=== PATIENT | male | born 1975 | race Hispanic/Latino ===

== ENCOUNTER 2017-12-02 16:17 | Emergency (ER) | payer MEDICAID ==
[2017-12-02 16:23] VITALS: PULSE 80; RESP 18; TEMP 97.7; O2SAT 100; BMI 29.7
--- NOTE | 2017-12-02 16:39 | C.PDOC ---
History Of Present Illness WORSENING R NECK PAIN X 1 MO. WORSE AT SIDE/BASE OF R NECK, WORSE W PALPATION MOVEMENT. SWELLING. +PAIN R ARM. NO WEAKNESS. [place] [facility] [place] W VALIUM NO IMPROVE. NO IMPROVE WNSAIDS EXAM MILD DIST NONTOXIC HEENT NEG NECK +MOD TEND R LAT/LOWER NECK MILD SWELL VS SPASM. LIMTIED MOVEMENT DUE TO PAIN. NO CSPNIE TEND. NO PULSATILE MASS SKIN NEG REMAINDER NEG Time Seen by Provider: 12/02/17 16:27 Chief Complaint (Nursing): Back Pain History Per: Patient History/Exam Limitations: no limitations Onset/Duration Of Symptoms: Days Current Symptoms Are (Timing): Still Present Severity: Moderate Past Medical History Reviewed: Historical Data, Nursing Documentation, Vital Signs Vital Signs: Last Vital Signs Temp 97.7 F 12/02/17 16:23 Pulse 80 12/02/17 16:23 Resp 18 12/02/17 16:23 BP 145/80 12/02/17 18:58 Pulse Ox 100 12/02/17 18:42 - Medical History PMH: HIV, HTN Surgical History: No Surg Hx Family History: States: No Known Family Hx - Social History Hx Alcohol Use: No Hx Substance Use: No - Immunization History Hx Tetanus Toxoid Vaccination: No Hx Influenza Vaccination: No Hx Pneumococcal Vaccination: No Review Of Systems Except As Marked, All Systems Reviewed And Found Negative. Musculoskeletal: Positive for: Neck Pain (right neck pain), Arm Pain (right arm pain) Neurological: Negative for: Weakness Physical Exam - Physical Exam Appears: Non-toxic, Other (mild distress) Skin: Normal Color, Warm Head: Atraumatic, Normacephalic Eye(s): bilateral: Normal Inspection Ear(s): Bilateral: Normal Nose: Normal Oral Mucosa: Moist Throat: Normal, No Erythema, No Exudate Neck: Decreased ROM (limited movement due to pain), Other (moderate tenderness right lateral/lower neck, mild swelling vs. spasm, no c-spine tenderness, no pulsatile mass) Neurological/Psych: Oriented x3, Normal Speech, Normal Motor, Normal Sensation ED Course And Treatment - Laboratory Results Result Diagrams: 12/02/17 17:09 12/02/17 17:09 O2 Sat by Pulse Oximetry: 100 (RA) Pulse Ox Interpretation: Normal Progress - Re-Evaluation Re-evaluation Note: 02/10/18 18:32 PERSIST PAIN. OFFERED ADDL PAIN RX, ADVISED OF POTENTIAL FOR INCR SIDE EFFECT. PS DOES NOT WISH ADDL MEDS @ THIS TIME. CT REPORT PENDING 12/02/17 18:41 145/70 R UE; 135/70 L ARM D/W [facility] REQUESTED STAT ED READING. STATES WILL CALLBACK 12/02/17 19:12 S/O DR DISLA F/U CT RESULTS, DISPO. PENDING REPORT [facility] - Data Reviewed Data Reviewed: Lab, Diagnostic imaging, Old records Medical Decision Making Medical Decision Making: Plan: --Labs --CT- Neck --Zofran Disposition - Disposition Disposition Time: 19:15 Condition: STABLE Forms: [employer] (Sing[place]an) - Clinical Impression Clinical Impression: Neck pain - Scribe Statement The provider has reviewed the documentation as recorded by the Sindiibarthur Conner Provider Attestation: All medical record entries made by the Scribe were at my direction and personally dictated by me. I have reviewed the chart and agree that the record accurately reflects my personal performance of the history, physical exam, medical decision making, and the department course for this patient. I have also personally directed, reviewed, and agree with the discharge instructions and disposition.
[2017-12-02 17:12] LABS: BASO % 0.6 % (0.0-2.0); EOS # 0.3 K/uL (0.0-0.7); EOS % 3.7 % (0.0-4.0); HEMOGLOBIN 14.3 g/dL (12.0-18.0); LYMPH # 1.8 K/uL (1.0-4.3); LYMPH % 26.8 % (20.0-40.0); MEAN CELL VOLUME 95.2 fL (80.0-94.0); MEAN CORPUSCULAR HEMOGLOBIN 32.7 pg (27.0-31.0); MEAN CORPUSCULAR HGB CONC 34.4 g/dL (33.0-37.0); MEAN PLATELET VOLUME 7.7 fL (7.2-11.7); MONO # 0.7 K/uL (0.0-0.8); MONO % 10.1 % (0.0-10.0); NEUT % 58.8 % (50.0-75.0); NRBC % 0.1 % (0.0-2.0); RBC 4.38 Mil/uL (4.40-5.90); WHITE BLOOD COUNT 6.8 K/uL (4.8-10.8)
[2017-12-02] MEDS ORDERED: Morphine 4 MG/ML VIAL ONE (17:12)
[2017-12-02 17:44] LABS: CALCIUM 8.4 mg/dl (8.6-10.4); GFR AFRICAN-AMERICAN > 60; GFR NON-AFRICAN AMERICAN > 60
[2017-12-02 17:46] LABS: BLOOD UREA NITROGEN 11 mg/dL (9-20)
[2017-12-02] MEDS ORDERED: HYDROmorphone 0.5 mg/0.5 ml ISec IVP STA (18:51)
[2017-12-02 18:58] VITALS: BP 145/80
[2017-12-02] MEDS ORDERED: HYDROmorphone 0.5 mg/0.5 ml ISec ONE (19:10)
--- NOTE | 2017-12-02 19:52 | CT ---
EXAM: CT Neck With Intravenous Contrast EXAM DATE/TIME: 12/02/2017 5:01 PM CLINICAL HISTORY: 42 years old, male; Signs and symptoms; Mass, lump, or swelling in neck; Additional info: R side neck pain swell TECHNIQUE: Axial computed tomography images of the neck with intravenous contrast. All CT scans at this facility use one or more dose reduction techniques, viz.: automated exposure control; ma/kV adjustment per patient size (including targeted exams where dose is matched to indication; i.e. head); or iterative reconstruction technique. Coronal and sagittal reformatted images were created and reviewed. CONTRAST: 100 mL of [id number] administered intravenously. COMPARISON: No relevant prior studies available. FINDINGS: NASOPHARYNX: No acute abnormality of the adenoidal/nasopharyngeal tonsils identified. OROPHARYNX: No acute abnormality of the tongue base identified. No acute abnormality of the palatine tonsils identified. No peritonsillar abscess. HYPOPHARYNX: No acute abnormality of the vallecula visualized. LARYNX: No acute abnormality of the vocal cords identified. No acute abnormality of the epiglottis identified. TRACHEA: Visualized portions of the trachea appear patent. RETROPHARYNGEAL SPACE: No evidence of prevertebral/retropharyngeal fluid or fluid collection. SUBMANDIBULAR/PAROTID GLANDS: No acute abnormality of the carotid or submandibular glands identified. THYROID: Left lobe of the thyroid gland is mildly heterogeneous in attenuation, however, there are no large focal nodules seen. BONES/JOINTS: No acute fractures or other acute bony abnormality noted. SOFT TISSUES:No acute abnormality of the visualized soft tissues is seen. No findings to suggest significant cellulitis of the soft tissues. No evidence of focal soft tissue fluid collection/abscess. VASCULATURE: No acute abnormality of the major neck vessels identified. LYMPH NODES: No evidence of diffuse lymphadenopathy. ESOPHAGUS: No acute abnormality of the upper esophagus identified. LUNG APICES: Lung apices appear clear. IMPRESSION: - No evidence of significant acute process. No definite cause for pain or swelling identified. - See above for remaining findings.
[2017-12-02] MEDS ORDERED: Iodixanol 320 MG/ML 100 ML BOTTLE IV ONE (20:17)
--- NOTE | 2017-12-02 21:16 | CP.PCM.CON ---
History of Present Illness - History of Present Illness History of Present Illness: Vascular Surgery Consult for Dr. Hua Reason for Consult: neck pain, vessel dilation on CT 42 M with PMH of HTN and DM presents to ED for neck pain. He states that he has had neck pain for about 1 month. He reports that it has been gradually getting worse. He has never had anything like this before. He reports that the pain is moderate and describes it as constant ache/discomfort. Patient states pain radiates to shoulder blade. Denies alleviating or exacerbating factors. Deneis fever/chills, SOB, Chest pain, palpitations, dizziness/lightheadedness, vertigo , syncope, vision changes. PMH: HTN, DM, HIV Meds: As per EMR Allergy: NKDA PSH:Denies FH: Denies Social: Denies tobacco/etoh/illicit drug use Review of Systems - Review of Systems All systems: reviewed and no additional remarkable complaints except (as per HPI ) Past Patient History - Past Social History Smoking Status: Never Smoked - CARDIAC Hx Hypertension: Yes - ENDOCRINE/METABOLIC Hx Diabetes Mellitus Type 2: Yes - HEMATOLOGICAL/ONCOLOGICAL Hx Human Immunodeficiency Virus (HIV): Yes - PSYCHIATRIC Hx Substance Use: No Meds Home Medications: Home Medication List Medication Instructions Recorded Confirmed Type Cyclobenzaprine [Cyclobenzaprine 10 mg PO Q8 PRN #20 tab 12/02/17 Rx HCl] oxyCODONE/Acetaminophen [Percocet 1 ea PO Q4 PRN #20 tab 12/02/17 Rx 5/325 mg Tab] predniSONE [Prednisone] 40 mg PO DAILY #10 tab 12/02/17 Rx Allergies/Adverse Reactions: Allergies Allergy/AdvReac Type Severity Reaction Status Date / Time No Known Allergies Allergy Unverified 12/02/17 16:27 Physical Exam - Constitutional Appears: No Acute Distress - Head Exam Head Exam: ATRAUMATIC, NORMOCEPHALIC - Eye Exam Eye Exam: EOMI, Normal appearance Pupil Exam: PERRL - ENT Exam ENT Exam: Mucous Membranes Moist - Neck Exam Neck exam: Positive for: Full Rom, Tenderness (Right lateral neck). Negative for: Lymphadenopathy Additional comments: no bruit appreciated trachea is midline - Respiratory Exam Respiratory Exam: NORMAL BREATHING PATTERN - Cardiovascular Exam Cardiovascular Exam: REGULAR RHYTHM - GI/Abdominal Exam GI & Abdominal Exam: Soft. absent: Tenderness - Extremities Exam Extremities exam: Positive for: normal capillary refill, pedal pulses present. Negative for: calf tenderness Additional comments: upper extremities pulses present - Back Exam Back exam: absent: CVA tenderness (L), CVA tenderness (R) - Neurological Exam Neurological exam: Alert, CN II-XII Intact, Oriented x3 - Psychiatric Exam Psychiatric exam: Normal Affect, Normal Mood - Skin Skin Exam: Dry, Intact, Normal Color, Warm Results - Vital Signs Recent Vital Signs: Last Vital Signs Temp 97.7 F 12/02/17 16:23 Pulse 80 12/02/17 16:23 Resp 18 12/02/17 16:23 BP 145/80 12/02/17 18:58 Pulse Ox 100 12/02/17 19:13 - Labs Result Diagrams: 12/02/17 17:09 12/02/17 17:09 Labs: Laboratory Results - last 24 hr 12/02/17 12/02/17 17:09 17:09 WBC 6.8 RBC 4.38 L Hgb 14.3 Hct 41.7 MCV 95.2 H MCH 32.7 H MCHC 34.4 RDW 13.0 Plt Count 362 MPV 7.7 Neut % (Auto) 58.8 Lymph % (Auto) 26.8 [place] % (Auto) 10.1 H Eos % (Auto) 3.7 Baso % (Auto) 0.6 Neut # (Auto) 4.0 Lymph # (Auto) 1.8 [place] # (Auto) 0.7 Eos # (Auto) 0.3 Baso # (Auto) 0.0 Sodium 135 Potassium 5.8 H Chloride 98 Carbon Dioxide 28 Anion Gap 15 BUN 11 Creatinine 0.9 Est GFR ( Amer) > 60 Est GFR (Non-Af Amer) > 60 Random Glucose 153 H Calcium 8.4 L Assessment & Plan - Assessment and Plan (Free Text) Plan: 42 M with neck pain, vessel dilation on CT -CT was read as normal variant (see full report) -Patient clinically stable -patient instructed to follow up as outpatient -he was instructed to return to ED if symptoms progress or worsen -Discussed with Dr. Melita López PGY1
== END 2017-12-02 23:19 | disposition home or self-care (01) ==
LOC: C.ER 16:17
DX: M54.2 Cervicalgia (principal)
CPT/HCPCS: 70491; 80048; 85025; 96372; 96374; 96375; 99283; J1170; J1885; J2270; J2405